=== PATIENT | female | born 1970 | race Caucasian/White ===

== ENCOUNTER 2023-05-24 10:17 | Emergency (ER) | payer BC ==
[2023-05-24] MEDS ORDERED: Lorazepam 1 MG TAB ONE (10:29)
[2023-05-24] MEDS ORDERED: Bupivacaine PF 0.5% 30 ML VIAL ONE (10:30)
[2023-05-24] MEDS ORDERED: Boostrix 0.5 ML (Tdap) VIAL (>/=7 yrs of age) ONE (10:30)
[2023-05-24] MEDS ORDERED: Amoxicillin/Potassium Clav 875 MG TAB ONE (10:41)
[2023-05-24] MEDS ORDERED: Bacitracin 1 PK ONE (10:41)
== END 2023-05-24 11:58 | disposition home or self-care (01) ==
LOC: CSHERS 10:17
DX: S68.121A Partial traumatic metacarpophalangeal amputation of left index finger, initial encounter (principal); W54.0XXA Bitten by dog, initial encounter
CPT/HCPCS: 90471; 90715; J0665